=== PATIENT | male | born 1945 | race Caucasian/White ===

== ENCOUNTER 2025-02-10 04:29 | Inpatient (IN) | payer OTHER, SELFPAY ==
[2025-02-09 23:00] VITALS: BP 154/78
[2025-02-09 23:47] VITALS: BP 133/67
[2025-02-09 23:49] VITALS: BMI 28.8
[2025-02-10] VITALS (12 sets, daily range): BP systolic 90–161; BP diastolic 50–89
[2025-02-10] MEDS: TYLENOL 650 MG PO ×4 (00:17→15:11)
--- NOTE | 2025-02-10 00:36 | ED.GENMED ---
History of Present Illness
<Colton Townsend PA-C - Last Filed: 02/11/25 15:12>
General
Chief Complaint: Cold/Flu/URI Symptoms
Time Seen by Provider: 02/09/25 23:42
History of Present Illness
History of Present Illness:
79-year-old male with history of hypertension and prostate cancer status post radical prostatectomy/cystectomy with neobladder creation presents to the emergency department for evaluation of fever, headache, coughing, and malaise for the past 2
days. He also notes cloudy urine in his urostomy bag. Has been taking intermittent antipyretics. No chest pain or shortness of breath
Past History
<Colton Townsend PA-C - Last Filed: 02/11/25 15:12>
Past History
ED Past Medical History: Cancer (Bladder)
ED Past Surgical History: Other (Urostomy)
Social History
Tobacco: Non-smoker
Alcohol: None
Review of Systems
<Colton Townsend PA-C - Last Filed: 02/11/25 15:12>
Review of Systems
Allergies reviewed?: Yes
All Other Systems: ROS reviewed and negative except as documented in HPI and ROS
Phy Exam
<Colton Townsend PA-C - Last Filed: 02/11/25 15:12>
Physical Exam
Physical Exam:
GEN: Well appearing, NAD, WDWN
HEENT: Oral mucosa moist, no scleral icterus
Cardiac: Regular rate and rhythm, no murmurs
Lung: No respiratory distress, no tachypnea, lungs clear to auscultation bilaterally
MSK: No gross deformity or injuries
Skin: Good color, no pallor or jaundice, no rashes
Neuro: AO x3, moves all extremities freely
Psych: Calm, cooperative
Course
<Colton Townsend PA-C - Last Filed: 02/11/25 15:12>
Orders/Labs/Results
Orders:
Orders
02/09/25 23:58
COVID-19 Antigen Urgent
Source: Nasal Swab
Complete Blood Count/With Diff Urgent
Comprehensive Metabolic Panel Urgent
Urine Culture Urgent
ROGELIO Source: Urine
Specimen Description:
Obtained by: Urostomy / Ileal Conduit
Date Specimen was Collected: 02/10/25
Time Specimen was Collected: 00:22
02/09/25 23:59
Influenza A+B Rapid Molecular Urgent
ROGELIO Source: Nasal Swab
Specimen Description:
Acetaminophen [Tylenol] 650 mg PO NOW STA
02/10/25 00:21
Creatine Phosphokinase Urgent
Comment: ADD ON
02/10/25 00:23
Urinalysis Urgent
Date Specimen was Collected: 02/10/25
Time Specimen was Collected: 00:22
Comment: ADD ON
Urine Microscopic Urgent
Date Specimen was Collected: 02/10/25
Time Specimen was Collected: 00:22
02/10/25 01:11
Add On- LAB Urgent
Tests Added?: CPK
CT Abd/pel Without Iv Or Oral Urgent
Comment:
Reason For Exam: acute renal failure
Lactated Ringers [Lr] 1,000 ml IV BOLUS
02/10/25 01:12
Add On - Microbiology Urgent
Tests Added?: urinalysis
02/10/25 01:23
Venous Blood Gas Urgent
%Oxygen/Room Air: 97
02/10/25 02:06
Cefepime HCl [Maxipime] 2,000 mg IV NOW STA
02/10/25 02:12
Lactic Acid Urgent
02/10/25 03:02
CR Chest - 2 Views Urgent
Comment:
Reason For Exam: cough fever x 2-3 days
02/10/25 04:05
Admit/Transfer Patient As Directed
Co-Sign Provider:
Level of Care: Inpatient admission
Assign to:: IMU- Intermediate Care
Physician / Group: Pankaj
Diagnosis: UTI, Sepsis, TAYA
Reason for Hospitalization: UTI, Sepsis, TAYA
Expected length of stay greater than two midnights?: Yes
ELOS- Estimated Length of Stay in days: 4
I certify the patient meets the requirements for IP care: Yes
02/10/25 04:06
Code Status As Directed
Resuscitation Status: Full Code
PRN Pain Medication Management As Directed
May give lesser potent ordered pain med per pt: Yes
preference::
Protocol:: Medication orders for pain may be administered in a
manner that supports deferring to patient preference
when the pt is:
- Requesting an ordered lesser potent pain medication.
Least to most potent pain medications are defined
as: acetaminophen < NSAID < tramadol < opioids
(morphine, oxycodone, hydromorphone).
- Requesting a lesser dose of the same medication IF
ORDERED.
- Requesting a less intrusive route of administration
if both routes are prescribed by the provider (PO <
IV).
02/10/25 04:46
0.9% Sodium Chloride 1000 ml [Nss] 1,000 ml IV 150 mls/hr
Acetaminophen [Tylenol] 650 mg PO Q4HPRN PRN
Albuterol Nebs [Ventolin Nebules] 2.5 mg INH R Q4HPRN PRN
02/10/25 04:46
UROLOGY CONSULT Routine
Consulting Provider: Gerry Pan Jr.
Was physician already notified: Yes
Comment: UTI, Sepsis, Parastomal Hernia, TAYA
Activity As Directed
Activity Level: Ambulate
With Assistance
EKG with chest pain [ECG as needed] As Directed
ECG as needed for:: Chest Pain
I/O [Intake/ Output] As Directed
Frequency: Per unit guidelines
Ostomy Care As Directed
Pneumatic Compression Sleeves As Directed
Type: Knee high
Vital Signs As Directed
Frequency: Per unit guidelines
Weight As Directed
Frequency: Daily
Oxygen Therapy [O2 Therapy] [RESP] Routine
Titrate/Wean O2 to maintain O2 sat greater than (%): 94
DX Deep Vein Thrombosis Video Routine
02/10/25 Breakfast
NPO
Allow oral meds: Yes
Allow clear liquids: Sips of Clears
02/10/25 06:02
Basic Metabolic Panel IN AM
Complete Blood Count/No Diff IN AM
02/10/25 08:00
Doxycycline [Vibramycin] 100 mg PO Q12
Heparin 5,000 units SC Q12
02/11/25 00:00
Cefepime HCl [Maxipime] 1,000 mg IV Q24H
Abnormal Lab Results
02/10/25 02/10/25 02/10/25
00:21 00:23 01:23
RBC 3.89 L 10^6/uL
(4.70-6.10)
Hgb 12.1 L g/dL
(13.0-18.0)
Hct 35.7 L %
(39.0-52.0)
MCH 31.1 H pg
(27.0-31.0)
Abs Immat Gran (auto) 0.1 H 10^3/uL
(0-0.05)
Absolute Neuts (auto) 7.5 H 10^3/uL
(1.4-6.5)
Absolute Lymphs (auto) 0.5 L 10^3/uL
(1.2-3.4)
Absolute Monos (auto) 0.8 H 10^3/uL
(0.1-0.6)
Immature Gran % 1.0 H %
(0-0.5)
Neutrophils % 84.3 H %
(42.2-75.2)
Lymphocytes % 5.1 L %
(20.5-51.1)
VBG pH 7.31 L
(7.32-7.43)
VBG pO2 84 H mmHg
(30-50)
VBG HCO3 18.1 L mmol/L
(22-27)
Carbon Dioxide 16 L mmol/L
(22-30)
BUN 50 H mg/dl
(9-20)
Creatinine 3.3 H mg/dL
(0.7-1.3)
Glucose 143 H mg/dl
(70-99)
Urine Occult Blood 4+ A
(Negative)
Ur Leukocyte Esterase 3+ A
(Negative)
Urine WBC >100 A /HPF
(0-5)
Urine Albumin 3+ A
(Neg - Trace)
02/10/25 00:21
02/10/25 00:21
Vital Signs
Initial and Last Documented VS:
Initial Vital Signs
Temp Pulse Resp BP Pulse Ox
100.9 F H 100 22 154/78 98
02/09/25 23:00 02/09/25 23:00 02/09/25 23:00 02/09/25 23:00 02/09/25 23:00
Last Documented Vital Signs
Temp Pulse Resp BP Pulse Ox
100 F 103 22 149/65 96
02/10/25 07:43 02/10/25 11:30 02/10/25 11:30 02/10/25 11:00 02/10/25 11:15
<Noemi Guerrero, DO - Last Filed: 02/10/25 03:17>
Orders/Labs/Results
Orders:
Orders
02/09/25 23:58
COVID-19 Antigen Urgent
Source: Nasal Swab
Complete Blood Count/With Diff Urgent
Comprehensive Metabolic Panel Urgent
Urine Culture Urgent
ROGELIO Source: Urine
Specimen Description:
Obtained by: Urostomy / Ileal Conduit
Date Specimen was Collected: 02/10/25
Time Specimen was Collected: 00:22
02/09/25 23:59
Influenza A+B Rapid Molecular Urgent
ROGELIO Source: Nasal Swab
Specimen Description:
Acetaminophen [Tylenol] 650 mg PO NOW STA
02/10/25 00:21
Creatine Phosphokinase Urgent
Comment: ADD ON
02/10/25 00:23
Urinalysis Urgent
Date Specimen was Collected: 02/10/25
Time Specimen was Collected: 00:22
Comment: ADD ON
Urine Microscopic Urgent
Date Specimen was Collected: 02/10/25
Time Specimen was Collected: 00:22
02/10/25 01:11
Add On- LAB Urgent
Tests Added?: CPK
CT Abd/pel Without Iv Or Oral Urgent
Comment:
Reason For Exam: acute renal failure
Lactated Ringers [Lr] 1,000 ml IV BOLUS
02/10/25 01:12
Add On - Microbiology Urgent
Tests Added?: urinalysis
02/10/25 01:23
Venous Blood Gas Urgent
%Oxygen/Room Air: 97
02/10/25 02:06
Cefepime HCl [Maxipime] 2,000 mg IV NOW STA
02/10/25 02:12
Lactic Acid Urgent
02/10/25 03:02
CR Chest - 2 Views Urgent
Comment:
Reason For Exam: cough fever x 2-3 days
02/10/25 04:05
Admit/Transfer Patient As Directed
Co-Sign Provider:
Level of Care: Inpatient admission
Assign to:: IMU- Intermediate Care
Physician / Group: Pankaj
Diagnosis: UTI, Sepsis, TAYA
Reason for Hospitalization: UTI, Sepsis, TAYA
Expected length of stay greater than two midnights?: Yes
ELOS- Estimated Length of Stay in days: 4
I certify the patient meets the requirements for IP care: Yes
02/10/25 04:06
Code Status As Directed
Resuscitation Status: Full Code
PRN Pain Medication Management As Directed
May give lesser potent ordered pain med per pt: Yes
preference::
Protocol:: Medication orders for pain may be administered in a
manner that supports deferring to patient preference
when the pt is:
- Requesting an ordered lesser potent pain medication.
Least to most potent pain medications are defined
as: acetaminophen < NSAID < tramadol < opioids
(morphine, oxycodone, hydromorphone).
- Requesting a lesser dose of the same medication IF
ORDERED.
- Requesting a less intrusive route of administration
if both routes are prescribed by the provider (PO <
IV).
02/10/25 04:46
0.9% Sodium Chloride 1000 ml [Nss] 1,000 ml IV 150 mls/hr
Acetaminophen [Tylenol] 650 mg PO Q4HPRN PRN
Albuterol Nebs [Ventolin Nebules] 2.5 mg INH R Q4HPRN PRN
02/10/25 04:46
UROLOGY CONSULT Routine
Consulting Provider: Gerry Pan Jr.
Was physician already notified: Yes
Comment: UTI, Sepsis, Parastomal Hernia, TAYA
Activity As Directed
Activity Level: Ambulate
With Assistance
EKG with chest pain [ECG as needed] As Directed
ECG as needed for:: Chest Pain
I/O [Intake/ Output] As Directed
Frequency: Per unit guidelines
Ostomy Care As Directed
Pneumatic Compression Sleeves As Directed
Type: Knee high
Vital Signs As Directed
Frequency: Per unit guidelines
Weight As Directed
Frequency: Daily
Oxygen Therapy [O2 Therapy] [RESP] Routine
Titrate/Wean O2 to maintain O2 sat greater than (%): 94
DX Deep Vein Thrombosis Video Routine
02/10/25 Breakfast
NPO
Allow oral meds: Yes
Allow clear liquids: Sips of Clears
02/10/25 06:02
Basic Metabolic Panel IN AM
Complete Blood Count/No Diff IN AM
02/10/25 08:00
Doxycycline [Vibramycin] 100 mg PO Q12
Heparin 5,000 units SC Q12
02/11/25 00:00
Cefepime HCl [Maxipime] 1,000 mg IV Q24H
Abnormal Lab Results
02/10/25 02/10/25 02/10/25
00:21 00:23 01:23
RBC 3.89 L 10^6/uL
(4.70-6.10)
Hgb 12.1 L g/dL
(13.0-18.0)
Hct 35.7 L %
(39.0-52.0)
MCH 31.1 H pg
(27.0-31.0)
Abs Immat Gran (auto) 0.1 H 10^3/uL
(0-0.05)
Absolute Neuts (auto) 7.5 H 10^3/uL
(1.4-6.5)
Absolute Lymphs (auto) 0.5 L 10^3/uL
(1.2-3.4)
Absolute Monos (auto) 0.8 H 10^3/uL
(0.1-0.6)
Immature Gran % 1.0 H %
(0-0.5)
Neutrophils % 84.3 H %
(42.2-75.2)
Lymphocytes % 5.1 L %
(20.5-51.1)
VBG pH 7.31 L
(7.32-7.43)
VBG pO2 84 H mmHg
(30-50)
VBG HCO3 18.1 L mmol/L
(22-27)
Carbon Dioxide 16 L mmol/L
(22-30)
BUN 50 H mg/dl
(9-20)
Creatinine 3.3 H mg/dL
(0.7-1.3)
Glucose 143 H mg/dl
(70-99)
Urine Occult Blood 4+ A
(Negative)
Ur Leukocyte Esterase 3+ A
(Negative)
Urine WBC >100 A /HPF
(0-5)
Urine Albumin 3+ A
(Neg - Trace)
02/10/25 00:21
02/10/25 00:21
Vital Signs
Initial and Last Documented VS:
Initial Vital Signs
Temp Pulse Resp BP Pulse Ox
100.9 F H 100 22 154/78 98
02/09/25 23:00 02/09/25 23:00 02/09/25 23:00 02/09/25 23:00 02/09/25 23:00
Last Documented Vital Signs
Temp Pulse Resp BP Pulse Ox
100 F 103 22 149/65 96
02/10/25 07:43 02/10/25 11:30 02/10/25 11:30 02/10/25 11:00 02/10/25 11:15
<Colton Townsend PA-C - Last Filed: 02/11/25 15:12>
MDM/Problems Addressed
MDM/Problems Addressed:
At this time the chronicity of the patient's renal failure is not known. Prior labs from 2020 showed creatinine 1.7, patient is not certain of his degree of chronic kidney disease, simply states to me 'they told me I cannot get IV contrast'. He
does not have any access to a portal through [facility] where he normally gets his labs. At this time with his metabolic acidosis it is suspicious for an acute renal failure. CT shows no evidence for mechanical ureteral in regards to his
neobladder. This could certainly be related to neobladder infectious process. Will start the patient on broad-spectrum IV antibiotics and IV fluids and admit to the hospitalist service
<Noemi Guerrero DO - Last Filed: 02/10/25 03:17>
*Radiology
Radiology exam reviewed: preliminary read by ED provider (Chest x-ray is unremarkable, clear lung jolly.) and radiology read reviewed
*Pulse Oximetry
Patient hypoxic: no
*Critical Care Note
Total Time (30-74mins, 75-104mins- exclusive of procedures): Not Applicable
ED Attending Note
<Colton Townsend PA-C - Last Filed: 02/11/25 15:12>
-
Portions of this chart may have been created with voice recognition software.� Occasional wrong word or��sound alike� substitutions may have occurred due to the inherent limitations of voice recognition software.
<Noemi Guerrero DO - Last Filed: 02/10/25 03:17>
ED Attending Note
Patient seen and examined by attending physician: Yes
I performed a history and physical exam of patient and discussed management with resident, I reviewed resident's note and agree with documented findings and plan of care.: Yes
ED Attending Note:
79-year-old gentleman presents with 3-day history of cough, fever with Tmax of 102 to 103 �F. Occasionally productive of whitish to yellowish phlegm.
Generalized fatigue, dyspnea on exertion.
He has history of bladder cancer, prior history of cystoprostatectomy with ileal conduit formation and underwent parastomal hernia repair 3 months ago.
Labs are remarkable for elevated creatinine of 3.3 which has trended up from 1.7, 2020. Unclear as to patient's baseline creatinine but he does admit that he has been cautioned to avoid NSAIDs. He does admit to occasional Aleve dosing with
occasional flares of bilateral shoulder DJD and more recently over the past 2 to 3 days he has been taking ibuprofen several times per day along with Tylenol for treatment of fever, generalized aches.
Urinalysis suspicious for UTI with many WBCs. +3 leukocyte esterase.
No appreciable cough noted on exam. Lungs with scant rhonchi left base otherwise clear to auscultation. Normal pulse ox.
Abdomen is soft without appreciable tenderness.
CAT scan concerning for bilateral hydronephrosis and hydroureter with bilateral mild perinephric stranding. There is note of a parastomal hernia containing cecum which is new compared to 2020 and contributes to mass effect in the stoma which may be
causing urinary obstruction versus related to UTI.
It is reassuring that there is no significant parastomal tenderness and both patient and daughter no current parastomal fullness is markedly improved and overall stable since surgery 3 months ago.
Due to concern for cough over the past 3 days, will check chest x-ray concern for potential pneumonia but no report of lower lobe infiltrate on CT abdomen and pelvis.
IV antibiotics have been initiated along with IV fluids.
Will admit to hospitalist service.
Discharge Plan
Departure
Patient Disposition: Admit
Date of Disposition: 02/10/25
Time of Disposition: 02:25
Presentation/result/management discussed w/ accepting MD/DO: Hospitalist
Discharge Problem:
Metabolic acidosis, Fever, Acute pyelonephritis, Acute kidney injury superimposed on chronic kidney disease
Interventions
Interventions:
*Risk Screen - Suicide Last Done: 02/09/25 23:00
*General Assessment Last Done: 02/09/25 23:49
*Neglect/Abuse Screening Last Done: 02/09/25 23:00
*ED- Fall Risk Assessment Last Done: 02/09/25 23:49
*ED COVID-19 Vaccine History Last Done: 02/09/25 23:49
*Nursing Disposition Last Done: 02/10/25 16:34
ED-Male Genitourinary Assessment Last Done: 02/10/25 07:42
ED- Pulmonary Assessment Last Done: 02/10/25 07:42
Discharge Date and Time
Discharge Date/Time: 02/10/25 16:35
[2025-02-10 00:38] LABS: % Basophils 0.5 % (0-2); % Eosinophils 0.2 % (0-6); % Lymphocytes 5.1 % (20.5-51.1); % Monocytes 8.9 % (1.7-9.3); % Neutrophils 84.3 % (42.2-75.2); Absolute Immature Granulocytes 0.1 10^3/uL (0-0.05); Absolute Lymphocytes 0.5 10^3/uL (1.2-3.4); Absolute Monocytes 0.8 10^3/uL (0.1-0.6); Absolute Neutrophils 7.5 10^3/uL (1.4-6.5); Hematocrit 35.7 % (39.0-52.0); Hemoglobin 12.1 g/dL (13.0-18.0); Mean Corp Hgb Conc. 33.9 g/dL (33.0-37.0); Mean Corpuscular Hgb 31.1 pg (27.0-31.0); Mean Corpuscular Volume 91.8 fL (80.0-94.0); Mean Platelet Volume 9.5 fL (7.4-10.4); Nucleated Red Blood Cells % 0 % (-); Platelet Count 189 10^3/uL (130-400); Red Blood Cell Count 3.89 10^6/uL (4.70-6.10); Red Cell Dist. Width 14.1 % (11.5-14.5); White Blood Cell Count 8.8 10^3/uL (4.8-10.8)
[2025-02-10 00:54] LABS: ALT (SGPT) 22 U/L (0-50); AST (SGOT) 25 U/L (17-59); Alkaline Phosphatase 101 U/L (38-126); Blood Urea Nitrogen 50 mg/dl (9-20); Calcium 9.3 mg/dl (8.4-10.2); Carbon Dioxide 16 mmol/L (22-30); Chloride 104 mmol/L (98-107); Estimated Creatinine Clearance 15 ml/min; Glucose 143 mg/dl (70-99); Potassium 5.1 mmol/L (3.5-5.1); Sodium 137 mmol/L (135-145); eGFR 18.39
[2025-02-10 00:58] LABS: COVID-19 Antigen Negative (Negative)
[2025-02-10] MEDS: LR 1000 IV (01:25)
[2025-02-10 01:32] LABS: Venous Blood Gas B.E. -7.5 mmol/L (-4 to +4); Venous Blood Gas HCO3 18.1 mmol/L (22-27); Venous Blood Gas O2 Sat % 97.6 %; Venous Blood Gas pCO2 36 mmHg (35-48); Venous Blood Gas pH 7.31 (7.32-7.43); Venous Blood Gas pO2 84 mmHg (30-50)
[2025-02-10 01:37] LABS: Urine Albumin 3+ (Neg - Trace); Urine Bilirubin Negative (Negative); Urine Character Cloudy (Clear); Urine Color Yellow; Urine Glucose Negative (Negative); Urine Ketone Negative (Negative); Urine Leukocyte 3+ (Negative); Urine Nitrite Negative (Negative); Urine Occult Blood 4+ (Negative); Urine Urobilinogen Negative (Neg - 1+)
[2025-02-10 01:48] LABS: Creatine Phosphokinase 96 U/L (55-170)
[2025-02-10] MEDS: MAXIPIME 2000 MG IV (02:20)
[2025-02-10 02:32] LABS: Urine White Cell >100 /HPF (0-5)
[2025-02-10 02:37] LABS: Lactic Acid 1.1 mmol/L (0.7-2.0)
--- NOTE | 2025-02-10 04:13 | HPS.HSE ---
Family Physician
-
Family Physician: Mina Robert
Chief Complaint
-
Fever, chills, cough
History of Present Illness
Patient is a 79y M with PMH significant for prostate cancer s/p cystoprostatectomy @ [facility] (4 years ago) who presents to ED complaining of fevers / chills, malaise and some confusion. History obtained from patient and his
family at the bedside. Patient states that he had malodorous and cloudy appearing urine about 3 weeks ago. He was treated with a course of abx with improvement in his symptoms (unsure which abx). He remained symptom-free for about one week but
then cloudy and malodorous urine returned about one week ago.
For the past 3 days, patient has also had hacking, minimally productive cough. He has had fevers and chills at home with temp on Friday reaching 102.4 degrees.
Family noted that he has been intermittently confused as well.
This evening he presented to the ED for further evaluation.
No known sick contacts.
Family notes that patient takes Aleve or ibuprofen as needed for joint aches and pains.
He has been taking more of this than usual over the past week especially due to myalgias and fever at home.
Medical History
Past Medical History
Past Medical History: Reports Other
Additional Past Medical History:
Prostate Cancer s/p Surgery
Hypertension
Past Surgical History: Reports Other
Additional Past Surgical History:
Prostate Cancer s/p Cystoprostatectomy (2020 @ [facility])
Parastomal Hernia Repair (2023 @ [facility])
Social History
Tobacco: Former Smoker (Quit smoking 50 years ago.)
Alcohol: None
Drug: None
Family History
Family History: Not pertinent
Allergies / Home Medications
Allergies reflects when Allergies were last updated in [facility].
Home Medications with original date entered in [facility]
Allergy/Medication List:
Allergies
Allergy/AdvReac Type Severity Reaction Status Date / Time
Mmggusg-SVQ-NgC Reductase Allergy Unknown Unknown Verified 02/09/25 23:03
Inhibitor
[Frhkyxw-Oxg-Cne Reductase
Inhibitor]
Home Medications
No Meds [No Current Medications] 02/10/25
Review of Systems
-
History Source: Patient and Family
A 12 point ROS was completed and negative except as noted: Yes
Constitutional: Reports Fever, Fatigue and Chills
EENT: Denies Sore Throat
Respiratory: Reports Cough; Denies Hemoptysis or Trouble Breathing
Cardiac: Denies Chest Pain or Palpitations
Abdomen/GI: Denies Abdominal Pain, Nausea, Vomiting or Diarrhea
: Reports Other (Cloudy malodorous urine. RLQ urostomy.); Denies Dysuria
Musculoskeletal: Reports Joint Pain and Muscle Pain; Denies Edema
Neurological: Reports Headache; Denies Dizzy
Psych: Denies Depression or Anxiety
Physical Exam
Vital Signs
Vital Signs
Temp Pulse Resp BP Pulse Ox
98.3 F 100 22 148/71 96
02/10/25 03:15 02/09/25 23:00 02/09/25 23:00 02/10/25 03:00 02/10/25 03:45
Physical Exam
General: Other (79y M ill-appearing.)
HEENT: Other (Dry MM. Neck supple.)
Respiratory: Clear; No Wheezes, Rales or Rhonchi
Cardiac: S1/S2 and Tachycardia; No Murmur
GI: Soft and Other (Mild tenderness around stoma site. Normal bowel sounds. RLQ urostomy with good urine output. Dark / cloudy urine in device.)
Musculoskeletal: No Clubbing, No Cyanosis and No Edema
Neuro: AO x 3
Laboratory Results
-
02/10/25 00:21
02/10/25 00:21
Laboratory Results
Lactic Acid 1.1 mmol/L (0.7-2.0) 02/10/25 02:12
Total Bilirubin 1.0 mg/dl (0.2-1.3) 02/10/25 00:21
AST 25 U/L (17-59) 02/10/25 00:21
ALT 22 U/L (0-50) 02/10/25 00:21
Alkaline Phosphatase 101 U/L (38-126) 02/10/25 00:21
Impression/Plan
-
A/P: Patient is a 79y M with PMH significant for prostate cancer s/p cystoprostatectomy who presents to ED for evaluation of fevers, chills and confusion.
UTI / Pyelonephritis
Sepsis secondary to the above
- Admit for further evaluation and treatment.
- Patient presents with fever, tachycardia, tachypnea and UA/ imaging consistent with infection.
- IV abx with cefepime for now - follow up culture data.
- IVF support - BP stable thus far in the ED.
- Antipyretics / supportive care.
- Follow for clinical improvement.
TAYA
Anion Gap Metabolic Acidosis
- SCr = 3.3 compared to prior baseline of 1.7 (2020).
- Suspect secondary to sepsis as noted above + recent NSAID use.
- Continue IVF support.
- Urostomy is putting out urine despite appearance on CT.
- Follow for improvement in renal function.
Urostomy Status
Parastomal Hernia
Bilateral Ureteral Dilation
- CT findings include bilateral ureter dilation to the level of the stoma.
- Parastomal hernia noted (repair a few months ago at [facility] per family).
- Seems c/w infection > obstruction given significant urine output noted.
- Treat infection as noted above.
- Urology evaluation for additional recommendations.
- Patient is followed by Dr. James Worthy at [facility] - would consider potential transfer in the AM for continuity of care.
Benign Hypertension
- Patient previously on ARB for BP control.
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
- Monitor BP and consider oral agent for control if needed.
Cough
- ? viral respiratory infection v manifestation of uremia / sepsis / etc.
- CXR unremarkable. COVID / Influenza negative.
- Will add PO doxycycline for now for possible atypical coverage - but low threshold to discontinue.
- Supportive care, nebs, etc.
DVT Prophylaxis: Subcut Heparin
Code Status: Full
[2025-02-10] MEDS: NSS 1000 IV (05:06)
[2025-02-10 06:22] LABS: Hematocrit 30.9 % (39.0-52.0); Hemoglobin 10.1 g/dL (13.0-18.0); Mean Corp Hgb Conc. 32.7 g/dL (33.0-37.0); Mean Corpuscular Hgb 30.5 pg (27.0-31.0); Mean Corpuscular Volume 93.4 fL (80.0-94.0); Mean Platelet Volume 9.6 fL (7.4-10.4); Platelet Count 175 10^3/uL (130-400); Red Blood Cell Count 3.31 10^6/uL (4.70-6.10); Red Cell Dist. Width 14.1 % (11.5-14.5); White Blood Cell Count 7.3 10^3/uL (4.8-10.8)
[2025-02-10 06:54] LABS: Blood Urea Nitrogen 48 mg/dl (9-20); Calcium 8.7 mg/dl (8.4-10.2); Carbon Dioxide 13 mmol/L (22-30); Chloride 106 mmol/L (98-107); Estimated Creatinine Clearance 16 ml/min; Glucose 113 mg/dl (70-99); Potassium 4.8 mmol/L (3.5-5.1); Sodium 135 mmol/L (135-145); eGFR 19.82
[2025-02-10] MEDS: HEPARIN 5000 UNITS SC (07:12)
[2025-02-10] MEDS: VIBRAMYCIN 100 MG PO (07:12)
--- NOTE | 2025-02-10 11:25 | WOUNDNOTE ---
[facility] RN note: Checked patient's urostomy appliance as requested by Dr. Pan. Dr. Pan had inserted a Parisi catheter into patient's stoma with 1cc water filled in balloon. Dr. Pan stated there is nothing for nursing to do with the catheter and
that is it okay if it falls out. Stoma is pink. Patient turns self and ambulates. Sacrum blanchable red and intact. Skin on heels intact. Heels elevated with an air chair cushion. Instructed patient pressure injury prevention measures. Extra
urostomy 2 piece appliance with urinary adaptor in patient room. Patient uses a 1 piece urostomy appliance with an Erik seal at home and he is independent with his ostomy care at home. Nursing can assist patient with routine urostomy appliance
changes. Will sign off. Call for questions.
[2025-02-10 11:40] LABS: Venous Blood Gas B.E. -9.5 mmol/L (-4 to +4); Venous Blood Gas HCO3 15.5 mmol/L (22-27); Venous Blood Gas O2 Sat % 98.9 %; Venous Blood Gas pCO2 30 mmHg (35-48); Venous Blood Gas pH 7.32 (7.32-7.43); Venous Blood Gas pO2 151 mmHg (30-50)
--- NOTE | 2025-02-10 12:07 | CON.MD ---
Consultation - Medical
-
see dictated note
pt followed by dr chapman at [facility]
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
developed para-stomal hernia- revised end of 2023
has had occ UTI's
recently treated with antibx as outpt for UTI- but brought to ER last night with fevermaliase and SOB
ua +- no fevers or elevated wbc- but acidotic and elevate cr level
CT showed recurrent parastomal hernia with non-obstructed small bowel and hydro
on exam- stoma healthy
fonseca laced- drained some excess urine- left in place
spoke with dr chapman/pt and daughter and med team
his hydro and ARF are new- ? of loop obstruction by hernia
have rec transfer- arranging
in interim- continue fonseca and medical resuscitationand antibx
[2025-02-10] MEDS: SODIUM BICARBONATE 1050 MEQ IV (12:18)
--- NOTE | 2025-02-10 14:05 | W.DCSUMMARY ---
Discharge Summary
Discharge Data
Date of Admission: 02/10/25
Date of Discharge: 02/10/25
-
Pending Results: No
Hospital Course
79y M with PMH significant for prostate cancer s/p cystoprostatectomy @ [facility] (4 years ago) followed by a parastomal hernia that was revised end of 2023 who presents to ED complaining of fevers / chills, malaise and some
confusion.
Was evaluated by urology recommended transfer to [facility] as there is concerned that there is loop obstruction by the hernia and this has precipitated his hydronephrosis and acute renal failure. Urology was able to place a Parisi into
the stoma and drained some excess urine. He continues to have worsening acidemia as his bicarb was 13 with a pH of 7.3, pH bicarb 15.5, pCO2 of 30. We will continue IV antibiotics for treatment of pyelonephritis. Continue cefepime doxycycline.
He was accepted for transfer to [facility] under Dr. James Worthy
Scleral Anicteric
MMM
No JVD
CTABL
RRR, S1/S2
Soft, NT, ND, BS+
Warm, Dry
Urostomy Parisi catheter draining
AAOx3
Lethargic but comprehends
Discharge Plan
-
Patient Disposition: Acute Care Hospital
Condition: Critical
Discharge Orders:
Discharge Patient (As Directed); Ordered 02/10/25
Ordered By: Mark Ennis
Discharge Date and Time
Print Language: VIETNAMESE
--- NOTE | 2025-02-10 16:26 | CM ---
CM reviewed medical records. Plan for transfer to [facility].
== END 2025-02-10 16:36 | disposition short-term general hospital (02) | DRG 872 ==
LOC: ED 04:29
PROVIDERS: Physician Assistant; ADMITTING PHYSICIAN Hospitalist; ATTENDING PHYSICIAN Hospitalist; CONSULT PHYSICIAN Specialist; EMERGENCY PHYSICIAN Emergency Medicine; FAMILY PHYSICIAN Family Medicine
DX: A41.9 Sepsis, unspecified organism (principal); N13.6 Pyonephrosis; E87.20 Acidosis, unspecified; N17.9 Acute kidney failure, unspecified; Z93.6 Other artificial openings of urinary tract status; Z85.46 Personal history of malignant neoplasm of prostate; I10 Essential (primary) hypertension; Z90.6 Acquired absence of other parts of urinary tract; Z87.891 Personal history of nicotine dependence; M19.011 Primary osteoarthritis, right shoulder; M19.012 Primary osteoarthritis, left shoulder; Z85.51 Personal history of malignant neoplasm of bladder; Z90.79 Acquired absence of other genital organ(s); Z11.52 Encounter for screening for COVID-19
CPT/HCPCS: 71046; 74176; 80048; 80053; 81003; 81015; 82550; 82805; 83605; 85025; 85027; 87077; 87086; 87186; 87502; 87811; 96361; 96374; 99285